=== PATIENT | female | born 1985 | race Caucasian/White ===

== ENCOUNTER 2019-07-06 00:04 | Inpatient (IN) ==
--- NOTE | 2019-07-05 23:59 | PROVIDER DOCUMENTATION ---
This chart was entered by Missy Schuster Scribe, acting as scribe for Marcus Bautista MD. HPI-Abdominal Pain/GI Problem - General Chief Complaint: Abdominal Pain Stated Complaint: abd pain Time Seen by Provider: 07/05/19 23:35 Source: patient - History of Present Illness-ABD Nature of Presenting Problems: pt is a 34 yr old female presenting via EMS with complaint of abdominal pain, pressure, cramping and constipation. pt reports 9 days since last BM, pt reports similar episode 1 yr ago and she gave at that time, pt reports normal periods, LMP 06/16/19.pt reports she had some vaginal bleeding with wiping today. pt reports pain initially intermittent but has worsened since yesterday. A0 Abdominal Pain Onset Location: reports: generalized abdomen Quality of Pain: reports: cramping, pressure, tightness Review of Systems - Adult - REVIEW OF SYSTEMS - ADULT Constitutional: reports: no symptoms reported Eyes: reports: no symptoms reported Ears, Nose, Mouth & Throat: reports: no symptoms reported Cardiovascular: reports: no symptoms reported Respiratory: reports: no symptoms reported Gastrointestinal: reports: abdominal pain, constipation. denies: diarrhea, nausea, vomiting Genitourinary: reports: discharge (bloody discharge). denies: dysuria, frequency, flank pain Musculoskeletal: reports: no symptoms reported Integumentary: reports: no symptoms reported Neurological: reports: no symptoms reported Psychiatric: reports: no symptoms reported Endocrine: reports: no symptoms reported Hematologic/Lymphatic: reports: no symptoms reported Allergic/Immunologic: reports: no symptoms reported All Other Systems: Reviewed and Negative Past History - Adult - PAST MEDICAL HISTORY-ADULT Review of Records: reports: Old Records Reviewed, Nursing Assessment Review, Medications Reviewed, Social history reviewed & non-contributory. Major Childhood Illnesses: reports: denies history Cardiovascular: reports: denies history Respiratory: reports: denies history Gastrointestinal: reports: denies history Obstetrical/Gynecological: reports: denies history LMP: 06/16/19 Genitourinary: reports: denies history Musculoskeletal: reports: denies history Neurological: reports: denies history Endocrine/Immune: reports: denies history Other Conditions: reports: denies history - IMMUNIZATION STATUS Childhood Immunizations: See Nurse Assessment Flu Vaccine: See Nurse Assessment - FAMILY HISTORY Family History: reviewed, not pertinent - SOCIAL HISTORY Smoking: cigarettes Provider spent 3-5 mins advising pt. on dangers of tobacco.: Discussed manners to quit use, and f/u contacts for add'l counseling. Living Situation: family Physical Exam-General - PHYSICAL EXAM-ADULT Initial Vital Signs Reviewed: Yes - CONSTITUTIONAL General Appearance: alert, mild distress, obese, anxious - EYES Eyes: PERRL/EOMI - HEAD, EARS, NOSE, MOUTH & THROAT HENMT: normocephalic/atraumatic, moist mucous membranes - RESPIRATORY Respiratory: lungs clear, normal breath sounds, increased rate (hyperventaliating) - CARDIOVASCULAR Cardiovascular: normal peripheral pulses, regular rate, rhythm, tachycardia - GASTROINTESTINAL (ABDOMEN) Abdominal Exam: tenderness (right upper/left lower tenderness), other (firm mass noted) - GENITOURINARY Female Genitalia/Pelvic Exam: deferred - LYMPHATIC Lymphatic: no adenopathy - MUSCULOSKELETAL Back Exam: normal inspection Extremity: normal range of motion, non-tender, normal gait, normal inspection - SKIN Integumentary: normal color, normal turgor, warm/dry - NEUROLOGIC Neurologic: grossly normal, no motor/sensory deficits - PSYCHIATRIC Psych/Mental Status: oriented x 3, anxious Progress - PLAN OF CARE/RESULTS Progress/Plan/Lab Results: Vital Signs - 8 hr 07/05/19 23:16 Temperature 97.6 F Pulse Rate 102 H Respiratory Rate 20 Blood Pressure 138/80 O2 Sat by Pulse Oximetry 98 Orders Category Date Time Status ED: Urine Bedside ORDERED Care 07/05/19 23:35 Ordered CBC WITH ELECTRONIC DIFF [HEME] Stat Lab 07/05/19 23:36 Uncollected COMPREHENSIVE METABOLIC PANEL [CHEM] Stat Lab 07/05/19 23:36 Uncollected LIPASE [CHEM] Stat Lab 07/05/19 23:36 Uncollected TYPE & SCREEN [BBK] Stat Lab 07/05/19 23:36 Uncollected URINALYSIS W/POSS RFLX CULT [URINALYSIS] Stat Lab 07/05/19 23:35 Uncollected URINE DRUG SCREEN Stat Lab 07/05/19 23:35 Uncollected - REASSESSMENT Reassessment #1 Time Reassessed: 23:56 Status: unchanged (Sent to L&D in active labor) - ULTRASOUND (By Radiology) 1 US Study: Abdomen (bedside done by ME -) Impression: Abnormal (Full term - good FHTs), See EMR Report Procedures - ULTRASOUND (By ED Provider) Pelvic Ultrasound: Evidence of IUP Procedure Comment: near term gestation, active labor noted by ultrasound Departure - Departure Date of Disposition Decision: 07/05/19 Time of Disposition Decision: 23:58 DIAGNOSIS: Active labor at term, No care in current in third trimester Abdominal pain Qualifiers: Abdominal location: unspecified location Qualified Code(s): R10.9 - Unspecified abdominal pain Disposition: ADMITTED INPATIENT 09 Certified Medical Emergency: Emergent Condition: Fair - Critical Care Note This patient required my direct & personal management of CC.: Yes Attestation - Physician/ TAE Attestation Patient care was provided by Advanced Practice Provider:: No The physician spent face to face time with patient:: Yes Advanced Practice Provider documentation review:: Supervising physician onsite and consulted in the evaluation and care of this patient. The physician did have a face to face encounter with the patient. This chart was documented by the indicated scribe, (Missy Schuster, Her[place]) and accurately reflects the services I performed and decisions made by me, Marcus Bautista MD, as attested by the provider's signature.
[~2019-07-06 00:04] MED LIST: NS 1,000 ML IV ONE
[2019-07-06] MEDS ORDERED: ZOFRAN IV PRN (00:19)
[2019-07-06] MEDS ORDERED: KEFZOL 1 GM/D5W 1 GM/50 ML IVPB IV PRN (00:19)
[2019-07-06] MEDS ORDERED: PEPCID IV PRN (00:19)
[2019-07-06] MEDS ORDERED: PEPCID PO PRN (00:19)
[2019-07-06] MEDS ORDERED: STADOL IV PRN (00:19)
[2019-07-06] MEDS ORDERED: SODIUM CHLORIDE 0.9% INJ SCH (00:30)
[2019-07-06] MEDS ORDERED: LR 1,000 ML IV SCH (00:30)
[2019-07-06] MEDS ORDERED: PITOCIN 30 UNITS/NS 30 UNIT/500 ML IV.SOLN IV SCH ×2 (00:30→01:15)
[2019-07-06 00:49] LABS: BASO# 0.05 X1000 (0.0-0.2); BASO% 0.4 % (0.0-0.8); EOS# 0.12 X1000 (0.0-0.7); EOS% 0.9 % (0.0-10.0); HEMATOCRIT 36.1 % (37.0-47.0); IMM GRAN# 0.08 X1000 (0.0-0.04); IMM GRAN% 0.6 % (0.0-0.5); LYMPH# 1.57 X1000 (1.2-3.4); LYMPH% 11.8 % (20.5-51.1); MCH 27.3 PG (27-31); MCHC 33.2 g/dL (33-37); MCV 82.2 FL (81-99); MONO% 4.5 % (1.7-9.3); MPV 10.9 FL (7.4-10.4); NEUT# 10.91 X1000 (1.4-6.5); NEUT% 81.8 % (42.2-75.2); PLT 294 X1000 (130-400); RBC 4.39 XMIL (4.2-5.4); RDW 13.9 % (11.5-14.5); WBC 13.33 X1000 (4.8-10.8)
[2019-07-06 00:51] LABS: UR AMPHETAMINES QUAL NONE DETECTED (NONE DETECT); UR BARBITUATES QUAL NONE DETECTED (NONE DETECT); UR BENZODIAZEPIN QUAL NONE DETECTED (NONE DETECT); UR CANNABINOIDS QUAL NONE DETECTED (NONE DETECT); UR COCAINE QUAL NONE DETECTED (NONE DETECT); UR METHADONE QUAL NONE DETECTED (NONE DETECT); UR OPIATES QUAL NONE DETECTED (NONE DETECT); UR OXYCODONE QUAL NONE DETECTED (NONE DETECT); UR PCP QUAL NONE DETECTED (NONE DETECT)
[2019-07-06] MEDS ORDERED: M-M-R II VACCINE SUBQ ONE (01:01)
[2019-07-06] MEDS ORDERED: ATARAX PO PRN (01:01)
[2019-07-06] MEDS ORDERED: CYTOTEC PO PRN (01:01)
[2019-07-06] MEDS ORDERED: HYDROXYZINE IM PRN (01:01)
[2019-07-06] MEDS ORDERED: BOOSTRIX VACCINE IM ONE (01:01)
[2019-07-06] MEDS ORDERED: PERI MEDS (DERMOPLAST/NUPERCAINAL/TUCKS) MISC PRN (01:01)
[2019-07-06] MEDS ORDERED: AMBIEN PO PRN (01:01)
[2019-07-06] MEDS ORDERED: BENADRYL PO PRN (01:01)
[2019-07-06] MEDS ORDERED: BENADRYL IV PRN (01:01)
[2019-07-06] MEDS ORDERED: XYLOCAINE-MPF 1% INJ PRN (01:01)
[2019-07-06] MEDS ORDERED: PITOCIN IM PRN (01:01)
[2019-07-06] MEDS ORDERED: PITOCIN 20 UNITS/NS 20 UNITS/1,000 ML IV.SOLN IV SCH (01:15)
[2019-07-06] MEDS: TYLENOL PO PRN ×2 (01:35→15:00)
[2019-07-06 02:16] LABS: RAPID HIV PRESUMPTIVE NEGATIVE; RUBELLA SCREEN IMMUNE (IMMUNE)
--- NOTE | 2019-07-06 07:26 | OB/GYN PROGRESS NOTE ---
- Subjective PPD#0 Patient delivered just after midnight, no complaints OB Physical Exam Vital Signs - 8 hr 07/06/19 00:40 07/06/19 00:50 07/06/19 01:00 Temperature 97.0 F L Pulse Rate 103 H 104 H 94 H Respiratory Rate 18 18 18 Blood Pressure 138/63 135/61 124/61 07/06/19 01:10 07/06/19 01:20 07/06/19 01:30 Temperature Pulse Rate 100 H 96 H 91 H Respiratory Rate 18 18 18 Blood Pressure 132/81 130/72 143/77 07/06/19 01:40 07/06/19 03:43 Temperature 97.0 F L Pulse Rate 90 95 H Respiratory Rate 18 18 Blood Pressure 139/73 129/63 - CONSTITUTIONAL General Appearance: appears well, no apparent distress - EYES Eyes: PERRL/EOMI - HEAD, EARS, NOSE, MOUTH & THROAT HENMT: normocephalic/atraumatic - RESPIRATORY Respiratory: no respiratory distress - SKIN Integumentary: normal color - NEUROLOGIC Neurologic: grossly normal - PSYCHIATRIC Psych/Mental Status: normal thought content, oriented x 3 Active Medications Generic Name Dose Route Start Last Admin Trade Name Freq PRN Reason Stop Dose Admin Acetaminophen 650 mg 07/06/19 00:19 07/06/19 01:35 Tylenol PO 650 mg Q4-6H PRN PRN Administration Headache Benzocaine 1 each 07/06/19 01:01 07/06/19 01:36 Flaca Meds (Dermoplast/Nupercainal/Tucks) MISC 1 applicatn 3-4XDAY PRN PRN Administration episiotomy/hemorrhoids Butorphanol Tartrate 2 mg 07/06/19 00:19 Stadol IV PRN PRN Pain Diphenhydramine HCl 25 mg 07/06/19 01:01 Benadryl PO Q4H PRN PRN Itching Diphenhydramine HCl 12.5 mg 07/06/19 01:01 Benadryl IV Q4H PRN PRN Itching Famotidine 40 mg 07/06/19 00:19 Pepcid PO Q12H PRN PRN GI upset or indigestion Famotidine 20 mg 07/06/19 00:19 Pepcid IV Q12H PRN PRN GI upset or indigestion Hydroxyzine HCl 50 mg 07/06/19 01:01 Atarax PO Q3-4H PRN PRN Nausea Hydroxyzine HCl 50 mg 07/06/19 01:01 Hydroxyzine IM Q3-4H PRN PRN Nausea Cefazolin Sodium/Dextrose 1 gm in 50 mls @ 100 mls/hr 07/06/19 00:19 Kefzol 1 Gm/D5w IV ONCE PRN PRN SECTION Lactated Ringer's 1,000 mls @ 0 mls/hr 07/06/19 00:30 Lr IV .Q0M RUBEN As Directed Ibuprofen 800 mg 07/06/19 01:01 Motrin PO Q8H PRN PRN cramping Lidocaine HCl 30 ml 07/06/19 01:01 Xylocaine-Mpf 1% INJ PRN PRN Perineal repair Misoprostol 800 microgm 07/06/19 01:01 Cytotec PO PRN PRN Severe bleeding Ondansetron HCl 4 mg 07/06/19 00:19 Zofran IV PRN PRN Nausea Oxytocin 20 unit 07/06/19 01:01 Pitocin IM PRN PRN Severe bleeding Senna/Docusate Sodium 1 each 07/06/19 21:00 Pericolace PO QHS RUBEN Sodium Chloride 5 - 10 ml 07/06/19 00:30 Sodium Chloride 0.9% INJ DIRECTED RUBEN Zolpidem Tartrate 10 mg 07/06/19 01:01 Ambien PO HS PRN PRN Sleep Bedside Urine ED: Urine Bedside Start: 07/05/19 23:35 Freq: ORDERED Status: Complete Protocol: Activity Type Activity Date Activity User E-Sign Co-Sign Detail Recorded Client Recorded Date Recorded By Document 07/06/19 00:05 [id number] 07/06/19 00:05 [id number] Edit Status 07/06/19 02:07 [id number] Active=>Complete [id number] 07/06/19 02:07 [id number] Laboratory Results - last 24 hr 07/06/19 07/06/19 07/06/19 00:00 00:05 00:05 WBC 13.33 H RBC 4.39 Hgb 12.0 Hct 36.1 L MCV 82.2 MCH 27.3 MCHC 33.2 RDW Std Deviation 13.9 Plt Count 294 MPV 10.9 H Immature Gran % (Auto) 0.6 H Neut % (Auto) 81.8 H Lymph % (Auto) 11.8 L [place] % (Auto) 4.5 Eos % (Auto) 0.9 Baso % (Auto) 0.4 Immature Gran # (Auto) 0.08 H Neut # (Auto) 10.91 H Lymph # (Auto) 1.57 [place] # (Auto) 0.60 H Eos # (Auto) 0.12 Baso # (Auto) 0.05 Glucose Urine Opiates Screen NONE DETECTED Ur Oxycodone Screen NONE DETECTED Ur Methadone, Qual NONE DETECTED Ur Barbiturates Screen NONE DETECTED Ur Phencyclidine Scrn NONE DETECTED Ur Amphetamines Screen NONE DETECTED U Benzodiazepines Scrn NONE DETECTED Urine Cocaine Screen NONE DETECTED U Cannabinoids Screen NONE DETECTED RPR NON-REACTIVE HIV 1&2 Antibody Rapid Rubella Immunity Screen Blood Type Blood Type Confirm Antibody Screen 07/06/19 07/06/19 07/06/19 00:05 00:05 00:05 WBC RBC Hgb Hct MCV MCH MCHC RDW Std Deviation Plt Count MPV Immature Gran % (Auto) Neut % (Auto) Lymph % (Auto) [place] % (Auto) Eos % (Auto) Baso % (Auto) Immature Gran # (Auto) Neut # (Auto) Lymph # (Auto) [place] # (Auto) Eos # (Auto) Baso # (Auto) Glucose 99 Urine Opiates Screen Ur Oxycodone Screen Ur Methadone, Qual Ur Barbiturates Screen Ur Phencyclidine Scrn Ur Amphetamines Screen U Benzodiazepines Scrn Urine Cocaine Screen U Cannabinoids Screen RPR HIV 1&2 Antibody Rapid PRESUMPTIVE NEGATIVE Rubella Immunity Screen IMMUNE Blood Type A POSITIVE Blood Type Confirm Antibody Screen NEGATIVE 07/06/19 01:52 WBC RBC Hgb Hct MCV MCH MCHC RDW Std Deviation Plt Count MPV Immature Gran % (Auto) Neut % (Auto) Lymph % (Auto) [place] % (Auto) Eos % (Auto) Baso % (Auto) Immature Gran # (Auto) Neut # (Auto) Lymph # (Auto) [place] # (Auto) Eos # (Auto) Baso # (Auto) Glucose Urine Opiates Screen Ur Oxycodone Screen Ur Methadone, Qual Ur Barbiturates Screen Ur Phencyclidine Scrn Ur Amphetamines Screen U Benzodiazepines Scrn Urine Cocaine Screen U Cannabinoids Screen RPR HIV 1&2 Antibody Rapid Rubella Immunity Screen Blood Type Blood Type Confirm A POSITIVE Antibody Screen OB Assessment & Plan (1) Normal course Status: Acute Plan: routine care
[2019-07-06] MEDS: MOTRIN PO PRN ×2 (08:35→21:34)
[2019-07-06 16:10] LABS: HIV ANTIBODY SCREEN SEE COMMENTS
[2019-07-06] MEDS: PERICOLACE PO SCH (20:35)
[2019-07-07 04:31] LABS: BASO# 0.11 X1000 (0.0-0.2); BASO% 0.9 % (0.0-0.8); EOS# 0.29 X1000 (0.0-0.7); EOS% 2.4 % (0.0-10.0); HEMATOCRIT 33.6 % (37.0-47.0); IMM GRAN# 0.13 X1000 (0.0-0.04); IMM GRAN% 1.1 % (0.0-0.5); LYMPH# 3.34 X1000 (1.2-3.4); LYMPH% 27.5 % (20.5-51.1); MCH 27.4 PG (27-31); MCHC 32.7 g/dL (33-37); MCV 83.8 FL (81-99); MONO# 0.67 X1000 (0.11-0.59); MONO% 5.5 % (1.7-9.3); MPV 10.1 FL (7.4-10.4); NEUT# 7.61 X1000 (1.4-6.5); NEUT% 62.6 % (42.2-75.2); PLT 299 X1000 (130-400); RBC 4.01 XMIL (4.2-5.4); RDW 13.9 % (11.5-14.5); WBC 12.15 X1000 (4.8-10.8)
--- NOTE | 2019-07-07 06:49 | OB/GYN PROGRESS NOTE ---
- Subjective pt seen and examined. currently w/o complaints. Reports occasional left lower quadrant pain resolved with Motrin. Ambulating and urintaing without difficulty. Tolerating regular diet, denies n/v. +bottle feeding. OB Physical Exam Vital Signs - 8 hr 07/07/19 04:28 Temperature 96.2 F L Pulse Rate 81 Respiratory Rate 18 Blood Pressure 123/66 O2 Sat by Pulse Oximetry 98 - CONSTITUTIONAL General Appearance: appears well, alert, no apparent distress - RESPIRATORY Respiratory: lungs clear - CARDIOVASCULAR Cardiovascular: regular rate, rhythm - GASTROINTESTINAL (ABDOMEN) Abdominal Exam: non tender, soft (FF below umbilicu) - MUSCULOSKELETAL Extremity: non-tender, no calf tenderness - PSYCHIATRIC Psych/Mental Status: normal mood/affect, oriented x 3 Active Medications Generic Name Dose Route Start Last Admin Trade Name Freq PRN Reason Stop Dose Admin Acetaminophen 650 mg 07/06/19 00:19 07/06/19 15:00 Tylenol PO 650 mg Q4-6H PRN PRN Administration Headache Benzocaine 1 each 07/06/19 01:01 07/06/19 01:36 Flaca Meds (Dermoplast/Nupercainal/Tucks) MISC 1 applicatn 3-4XDAY PRN PRN Administration episiotomy/hemorrhoids Diphenhydramine HCl 25 mg 07/06/19 01:01 Benadryl PO Q4H PRN PRN Itching Famotidine 40 mg 07/06/19 00:19 Pepcid PO Q12H PRN PRN GI upset or indigestion Hydroxyzine HCl 50 mg 07/06/19 01:01 Atarax PO Q3-4H PRN PRN Nausea Hydroxyzine HCl 50 mg 07/06/19 01:01 Hydroxyzine IM Q3-4H PRN PRN Nausea Ibuprofen 800 mg 07/06/19 01:01 07/06/19 21:34 Motrin PO 800 mg Q8H PRN PRN Administration cramping Misoprostol 800 microgm 07/06/19 01:01 Cytotec PO PRN PRN Severe bleeding Oxytocin 20 unit 07/06/19 01:01 Pitocin IM PRN PRN Severe bleeding Senna/Docusate Sodium 1 each 07/06/19 21:00 07/06/19 20:35 Pericolace PO 1 each QHS RUBEN Administration Zolpidem Tartrate 10 mg 07/06/19 01:01 Ambien PO HS PRN PRN Sleep Bedside Urine ED: Urine Bedside Start: 07/05/19 23:35 Freq: ORDERED Status: Complete Protocol: Activity Type Activity Date Activity User E-Sign Co-Sign Detail Recorded Client Recorded Date Recorded By Document 07/06/19 00:05 [id number] 07/06/19 00:05 [id number] Edit Status 07/06/19 02:07 [id number] Active=>Complete [id number] 07/06/19 02:07 [id number] Laboratory Results - last 24 hr 07/06/19 07/07/19 02:16 04:24 WBC 12.15 H RBC 4.01 L Hgb 11.0 L Hct 33.6 L MCV 83.8 MCH 27.4 MCHC 32.7 L RDW Std Deviation 13.9 Plt Count 299 MPV 10.1 Immature Gran % (Auto) 1.1 H Neut % (Auto) 62.6 Lymph % (Auto) 27.5 [place] % (Auto) 5.5 Eos % (Auto) 2.4 Baso % (Auto) 0.9 H Immature Gran # (Auto) 0.13 H Neut # (Auto) 7.61 H Lymph # (Auto) 3.34 [place] # (Auto) 0.67 H Eos # (Auto) 0.29 Baso # (Auto) 0.11 HIV 1&2 Antibody Screen SEE COMMENTS OB Assessment & Plan (1) Vaginal delivery Status: Acute Plan: 34yo PPD#1 s/p -Pain well controlled on PO pain meds -HD stable -oob to ambulation -con't routine pp care
[2019-07-07 08:43] LABS: HEPATITIS B SURFACE ANTIGEN SEE COMMENTS
[2019-07-07] MEDS: MOTRIN PO PRN ×2 (11:48→23:01)
[2019-07-07] MEDS: PERICOLACE PO SCH (20:52)
[2019-07-08 07:08] VITALS: BP 115/70
[2019-07-08] MEDS: MOTRIN PO PRN (07:57)
--- NOTE | 2019-07-08 22:56 | DISCHARGE SUMMARY ---
ADMISSION DATE: 07/06/2019 DISCHARGE DATE: 07/08/2019 Cynthia is a 34-year-old multiparous patient who presented with no care in active phase labor at term. Underwent a normal spontaneous vaginal delivery without difficulty or complication. Please see separate delivery note. Her course was uncomplicated. day #1, she is afebrile with stable vital signs. She is ambulating, voiding, tolerating a regular diet. Hemoglobin 11.1. On day #2, ambulating, voiding, tolerating regular diet, vital signs stable, afebrile. She is discharged home in stable condition. She is asked to follow up in the office in 6 weeks. Call the office for pain or fever greater than 100.4, abnormal uterine bleeding. Maintain pelvic rest and regular diet. Continue vitamins and iron. A prescription for Motrin provided. cc: Zabrina Crespo MD
== END 2019-07-08 11:54 | disposition home or self-care (01) | DRG 807 ==
LOC: SUPCPDRO → OPLD 00:04 → LD 00:05
PROVIDERS: ADMIT Specialist; ATTEND Specialist